=== PATIENT | female | born 1990 | race Caucasian/White ===

== ENCOUNTER 2024-06-01 15:31 | Emergency (ER) | payer BC, SELFPAY ==
[2024-06-01 15:37] VITALS: BP 109/68; PULSE 84; RESP 16; TEMP 36.1; O2SAT 100; BMI 18.5
--- NOTE | 2024-06-01 15:54 | ED.ABDPAIN ---
HPI - Abdominal Pain General Chief Complaint: Abdominal Pain Stated Complaint: Up R abdomen and back pain-slight temp Time Seen by Provider: 06/01/24 15:44 History of Present Illness HPI narrative: This 34-year-old female comes in reporting right upper quadrant abdominal pain over the past 2 or more days. She states that it is a constant pain. She also feels pain around to her back. She does not report any nausea or vomiting or change with symptoms when taking food. She has not had any fevers. She states that she used to take alcohol of in very large amounts and states that she was drinking 750 mL of vodka a day but she quit doing this about a year and half ago. She wonders if her liver is doing okay. She has not had any jaundice or other symptoms and states that she is doing quite well otherwise in her health. Related Data Home Medications ?Medication ?Instructions ?Recorded ?Confirmed escitalopram oxalate 10 mg tablet 10 mg PO DAILY 06/01/24 06/01/24 lisdexamfetamine 70 mg capsule 70 mg PO DAILY 06/01/24 06/01/24 lorazepam 2 mg tablet 1 mg PO BID PRN anxiety attack 06/01/24 06/01/24 Previous Rx's ?Medication ?Instructions ?Recorded methylprednisolone 4 mg tablets in See Rx Instructions PO .COMPLEX 06/01/24 a dose pack (Medrol (Josue)) #21 ea Allergies Allergy/AdvReac Type Severity Reaction Status Date / Time banana Allergy Unknown Verified 06/01/24 15:40 Review of Systems Status of ROS Reports: 10 or more systems reviewed and unremarkable except as noted in History and below Narrative Constitutional: No fevers, no weight gain or loss. Eyes: No discharge. No vision changes. HENT: No congestion, no sore throat, no ear pain. Cardiovascular: No chest pain, no palpitations. Respiratory: No shortness of breath, no wheezes, no cough. Gastrointestinal: Right upper quadrant abdominal pain. Genitourinary: No dysuria, no hematuria. Musculoskeletal: Normal range of motion. Skin: No rashes, no pruritis. Neurological: No dizziness, weakness, sensory change, speech change. Endo/Heme/Allergies: No bruising or bleeding. No polydipsia. Pysch: no suicidality, no anxiety, no insomnia. All other systems reviewed and are negative. PFSH PFSH Social History Smoking Status: Never smoker Do you use any of these nicotine containing products: None Second hand tobacco smoke exposure: No How often do you have a drink containing alcohol: never AUDIT-C Alcohol total score: 0 Non-prescribed substance use: denies use service: No Exam Narrative: Exam Narrative: Constitutional: Well-developed, well-nourished, no acute distress. HEENT: Normocephalic, atraumatic. Neck: Normal range of motion. Nontender. Supple. Heart: Regular. No murmurs. Normal rate. Intact distal pulses. Lungs: Clear to auscultation. No chest discomfort. No wheezes, rhonchi, or rales. Abdomen: Normal bowel sounds. Pain localized in the right upper quadrant. No distinct pain at McBurney's point. No rebound tenderness. Genitalia: Deferred. Back: No midline tenderness. Normal range of motion. Extremities: Normal range of motion. No injury. Skin: Intact. No rash. Warm. No erythema or pallor. Neurologic: No altered sensation. No weakness. Alert and oriented. Psychiatric: No suicidality. No anxiety or depression. No insomnia. Nursing notes and vitals signs are reviewed. Const: Vital Signs, click to edit/add: Vital Signs - 24 hr 06/01/24 15:37 Temperature 97.0 F L Pulse Rate [Pulse Oximeter] 84 Respiratory Rate 16 Blood Pressure [Ri ght Upper Arm] 109/68 Pulse Oximetry 100 Oxygen Delivery Me thod Room Air Course Vital Signs Vital signs: Initial Vital Signs Temperature 97.0 F L 06/01/24 15:37 Temperature Source Temporal Artery Scan 06/01/24 15:37 Pulse Rate 84 06/01/24 15:37 Respiratory Rate 16 06/01/24 15:37 Blood Pressure 109/68 06/01/24 15:37 Blood Pressure Mean 81 06/01/24 15:37 Blood Pressure Position Sitting 06/01/24 15:37 Pulse Oximetry 100 06/01/24 15:37 Oxygen Delivery Method Room Air 06/01/24 15:37 Vital Signs Temperature 97.0 F L 06/01/24 15:37 Pulse Rate 84 06/01/24 15:37 Respiratory Rate 16 06/01/24 15:37 Blood Pressure 109/68 06/01/24 15:37 Pulse Oximetry 100 06/01/24 15:37 Oxygen Delivery Method Room Air 06/01/24 15:37 Temperature 97.0 F L 06/01/24 15:37 Pulse Rate 84 06/01/24 15:37 Respiratory Rate 16 06/01/24 15:37 Blood Pressure 109/68 06/01/24 15:37 Pulse Oximetry 100 06/01/24 15:37 Oxygen Delivery Method Room Air 06/01/24 15:37 MDM - Abdominal Pain MDM Narrative Medical decision making narrative: This patient comes in with pain in her right upper quadrant for the past couple days. It is kept her awake at night. She did eat prior to arrival and states that food does not seem to make it better or worse. I did use bedside ultrasound and saw her rather contracted gallbladder but otherwise it appeared normal. The patient then also had an IV placed with labs and CT imaging. These all returned with reassuring findings. She is okay to be discharged home. She did receive an oral dose of dexamethasone 10 mg and prescription for Toradol and Medrol Dosepak. She does recount various symptoms that she states could be due to some kind of autoimmune condition. She has seen a instructor extension work and did take methotrexate and Plaquenil for a while but did not care for the adverse effects. These treatments did help her feel better however. So I did prescribe a short term steroid dose for her. She will plan to follow-up with her primary physician an appropriate specialist. Lab Data Labs: Lab Results 06/01/24 Range/Units 16:41 WBC 7.57 (4.50-11.00) K/uL RBC 4.02 (4.00-5.20) m/uL Hgb 12.5 (12.0-16.0) gm/dL Hct 37.5 (33.0-51.0) % MCV 93 (80-100) fL MCH 31 (26-34) pg MCHC 33 (32-36) gm/dL RDW Coeff of Sreena 12.3 (11.5-15.5) % Plt Count 191 (140-440) K/uL Neut % (Auto) 54.5 (42.0-72.0) % Lymph % (Auto) 40.4 (20-44) % [place] % (Auto) 3.3 (0.0-11.0) % Eos % (Auto) 1.3 (0.0-7.0) % Baso % (Auto) 0.5 (0.0-3.0) % Neut # (Auto) 4.12 (1.7-7.0) K/uL Lymph # (Auto) 3.06 H (0.90-2.90) K/uL [place] # (Auto) 0.20 (0.00-0.90) K/UL Eos # (Auto) 0.10 (0.00-0.50) K/uL Baso # (Auto) 0.04 (0.00-0.30) K/uL Abs Immat Gran (auto) 0.00 (0.00-0.30) K/uL Imm/Tot Granulo (auto) 0.0 % Sodium 138 (135-149) mmol/L Potassium 3.2 L (3.6-5.1) mmol/L Chloride 105 (96-114) mmol/L Carbon Dioxide 27 (20-32) mmol/L Anion Gap 6 L (7-15) mEq/L BUN 11 (5-24) mg/dL Creatinine 0.7 (0.5-1.5) mg/dL Estimated Creat Clear 97.49 Estimated GFR 118 ml/min Glucose 57 L (60-115) mg/dL Calcium 9.3 (8.4-10.6) mg/dL Total Bilirubin 0.5 (0.1-1.5) mg/dL Direct Bilirubin 0.3 (0.0-0.5) mg/dL AST 26 (12-35) U/L ALT 23 (4-35) U/L Alkaline Phosphatase 41 (40-150) U/L Total Protein 7.5 (6.0-8.3) g/dL Albumin 4.8 (3.3-5.0) g/dL Lipase 224 (23-300) U/L Discharge Plan Discharge Clinical Impression: Abdominal pain Patient Disposition: Home, Self-Care Condition: Stable Additional Instructions: Take medication as needed and indicated. Follow up with MD return if worsening. Prescriptions: New methylprednisolone [Medrol (Josue)] 4 mg tablets,dose pack See Rx Instructions .ROUTE .COMPLEX Qty: 21 0RF Rx Instructions: orally per package directions No Action lorazepam 2 mg tablet 1 mg PO BID PRN (Reason: anxiety attack) escitalopram oxalate 10 mg tablet 10 mg PO DAILY lisdexamfetamine 70 mg capsule 70 mg PO DAILY Follow Up/Referrals: Vivian Vivar MD [Primary Care Provider] - Stand Alone Forms: [facility] Info Instructions Procedures Ultrasound Biliary exam #1: Anatomical areas examined: gallbladder, long and short axis and common bile duct Indications: RUQ/epigastric pain Exam type: limited abdominal ultrasound; RUQ Description/Findings: Gallbladder is significantly contracted is the patient 10 just prior to arrival. No gallstones identified.
--- NOTE | 2024-06-01 16:27 | CRLHL7_ITS ---
For Patients: As a result of the Century Cures Act, medical imaging exams and procedure reports are released immediately into your electronic medical record. You may view this report before your referring provider. If you have questions, please contact your health care provider. Indication: Right upper quadrant pain, radiating to shoulders and back Technique: CT through the abdomen and pelvis following 58 mL Isovue 370 IV contrast Comparison: None Findings: Lower chest: Pectus excavatum with no acute abnormality appreciated. Hepatobiliary: No significant parenchymal abnormality is appreciated. Spleen: Unremarkable. Pancreas: No acute abnormality appreciated. Adrenal glands: No acute abnormality appreciated. Kidneys: No significant parenchymal abnormality appreciated. No visualized calculi. No hydronephrosis. Bowel: No obstruction. No focal perienteric or pericolonic stranding is appreciated. There is at least partial visualization of the appendix with the appendix appearing unremarkable proximally, tip not well visualized. Vascular: No acute abnormality appreciated. Lymph nodes: No gross lymphadenopathy. Peritoneum: No free air. No free fluid. : No acute abnormality appreciated. IUD present. Soft tissues: No acute abnormality appreciated. Bones: No acute fracture. No lytic or blastic lesion. Impression: There is at least partial visualization of the appendix, with the proximal portion appearing unremarkable, though the tip is not well identified. Otherwise, the remainder of the examination is unremarkable with no abnormal findings appreciated to account for patient`s reported symptoms. Please note that all CT scans at this facility use dose modulation, iterative reconstruction, and/or weight-based dosing when appropriate to reduce radiation dose to as low as reasonably achievable. Dictated by Cristi Sullivan MD @ 06/01/2024 7:28:43 PM (Electronically Signed)
[2024-06-01 16:52] LABS: Basophils Absolute Auto 0.04 K/uL (0.00-0.30); Basophils Percent Auto 0.5 % (0.0-3.0); Eosinophils Percent Auto 1.3 % (0.0-7.0); Hematocrit 37.5 % (33.0-51.0); Hemoglobin* 12.5 gm/dL (12.0-16.0); Lymphocytes Absolute Auto 3.06 K/uL (0.90-2.90); Lymphocytes Percent Auto 40.4 % (20-44); Mean Corpuscular HGB Conc 33 gm/dL (32-36); Mean Corpuscular Hemoglobin 31 pg (26-34); Mean Corpuscular Volume 93 fL (80-100); Monocytes Percent Auto 3.3 % (0.0-11.0); Neutrophils Absolute Auto 4.12 K/uL (1.7-7.0); Neutrophils Percent Auto 54.5 % (42.0-72.0); Platelet Count* 191 K/uL (140-440); RDW Coefficient of Variation % 12.3 % (11.5-15.5); Red Blood Count 4.02 m/uL (4.00-5.20); White Blood Count* 7.57 K/uL (4.50-11.00)
[2024-06-01 16:56] LABS: Slide Review Reflex No
[2024-06-01 17:07] LABS: Albumin* 4.8 g/dL (3.3-5.0); Chloride* 105 mmol/L (96-114); Potassium* 3.2 mmol/L (3.6-5.1); Sodium* 138 mmol/L (135-149)
[2024-06-01 17:09] LABS: Creatinine* 0.7 mg/dL (0.5-1.5); Est. Creatinine Clearance* 97.49; Estimated Glomerular Filt Rate 118 ml/min
[2024-06-01 17:10] LABS: Alanine Aminotransferase* 23 U/L (4-35); Alkaline Phosphatase* 41 U/L (40-150); Anion Gap 6 mEq/L (7-15); Aspartate Amino Transferase* 26 U/L (12-35); Bilirubin Direct* 0.3 mg/dL (0.0-0.5); Bilirubin Total* 0.5 mg/dL (0.1-1.5); Blood Urea Nitrogen* 11 mg/dL (5-24); Calcium* 9.3 mg/dL (8.4-10.6); Carbon Dioxide* 27 mmol/L (20-32); Glucose* 57 mg/dL (60-115); Lipase* 224 U/L (23-300); Total Protein* 7.5 g/dL (6.0-8.3)
[2024-06-01] MEDS: dexAMETHasone 10 MG/ML inj PO (20:20)
== END 2024-06-01 20:33 | disposition home or self-care (01) ==
PROVIDERS: Emergency Provider Emergency Medicine Emergency Medical Services; PCP Family Medicine
DX: R10.11 Right upper quadrant pain (principal)
CPT/HCPCS: 36415; 74177; 76705; 80048; 80076; 83690; 85025; 99284; J1100; Q9967